=== PATIENT | female | born 1935 | race Caucasian/White ===

== ENCOUNTER 2017-04-01 09:43 | Outpatient (CLI) | payer MEDICARE, OTHER ==
[2017-04-01 11:07] LABS: #Eosinphils 0.2 thou/uL (0.0-0.7); #Lymphocytes 1.7 thou/uL (1.20-3.40); #Monocytes 0.6 thou/uL (0.11-0.59); #Neutrophils 4.6 thou/uL (1.40-6.50); %Basophils 0.6 % (0.0-1.0); %Eosinophils 2.7 % (0.0-10.0); %Monocytes 8.3 % (0.0-10.0); %Neutrophils 64.4 % (42.0-75.0); Hemoglobin 11.3 g/dL (12.0-16.0); Mean Corpuscular HGB CONC 32.8 g/dL (32.0-36.0); Mean Corpuscular Hemoglobin 30.3 pg (27.0-31.0); Mean Corpuscular Volume 92.1 fl (81.0-99.0); Mean Platelet Volume 7.4 fL (7.4-10.4); Platelet Count 269 thou/uL (130-400); RBC Distribution Width 13.1 % (11.5-14.5); Red Blood Cell (RBC) Count 3.75 mill/uL (4.20-5.40); White Blood Cell (WBC) Count 7.2 thou/uL (4.8-10.8)
[2017-04-01 11:27] LABS: Anion Gap 12 mmol/L (10-20); BUN (Urea Nitrogen) 27 mg/dL (9.8-20.1); Calc. Creatinine Clearance 0 mL/min (70-130); Calcium 9.4 mg/dL (7.8-10.44); Carbon Dioxide 28 mmol/L (23-31); Chloride 104 mmol/L (98-107); Estimated GFR-MDRD 46; Glucose 196 mg/dL (83-110); Potassium 4.8 mmol/L (3.5-5.1); Sodium 139 mmol/L (136-145)
--- NOTE | 2017-04-01 15:46 | EKG ---
Test Reason : Blood Pressure : / mmHG Vent. Rate : 074 BPM Atrial Rate : 074 BPM P-R Int : 172 ms QRS Dur : 152 ms QT Int : 422 ms P-R-T Axes : 079 -75 044 degrees QTc Int : 468 ms Normal sinus rhythm Left axis deviation Right bundle branch block Abnormal ECG Confirmed by CAPRI MORILLO ([id number]) on 04/01/2017 3:46:42 PM Referred By: SHANKAR Confirmed By:CAPRI MORILLO
== END 2017-04-01 09:44 | disposition home or self-care (01) ==
LOC: LABBT 09:43
PROVIDERS: ATTEND Neurological Surgery
DX: Z01.818 Encounter for other preprocedural examination (principal); M54.16 Radiculopathy, lumbar region
CPT/HCPCS: 80048; 85025; 93005; 93010

== ENCOUNTER 2017-04-08 05:46 | Day surgery (SDC) | payer MEDICARE, OTHER ==
[2017-04-01 09:58] VITALS: BMI 26.5
--- NOTE | 2017-04-08 06:07 | HP ---
HISTORY OF PRESENT ILLNESS: Ms. Plummer is a pleasant 81-year-old woman who presents for severe left lower extremity L5 pains that have been present for roughly 1-1/2 years, but have worsened since Dec. She previously has attempted physical therapy and more recently epidural steroid injections, but unfortunately that only helped in a limited fashion. She is ready now to move forward with [facility]. MRI from [facility] reveals a slip at L4-L5 that narrows the bilateral lateral recesses and also has a far lateral foraminal disk herniation at L5 to the left which fits with her symptoms quite wel l. PAST MEDICAL HISTORY: Diabetes, , hypercholesterolemia, and hypertension. ALLERGIES: BACTRIM, COREG, NORVASC, METFORMIN, GLUCOPHAGE, NORCO, LISINOPRIL, LATEX, CRESTOR, JARDIA NCE, LYRICA, and EPINEPHRINE. PAST SURGICAL HISTORY: Appendectomy, hysterectomy, and cardiac bypass. CURRENT MEDICATIONS: NovoLog, Lantus, Januvia, Nifedical, isosorbide mononitrate, Synthroid, clonidi ne, potassium, furosemide, Ecotrin, and alprazolam. PHYSICAL EXAMINATION: The patient is alert and oriented x3. Gait is antalgic. Positive left straig ht leg raise. ASSESSMENT: Lumbar radiculopathy. PLAN: Dr. Reed met with the patient, reviewed imaging and advocated for a left L5 decompression. H e explained to the patient the risks, benefits, and alternatives to the procedure. The patient expre ssed understanding and would like to move forward with surgery as discussed. I do believe the patien t is mentally competent and capable of making medical decisions for herself and we will move forward with surgery as planned. Bhupinder An PA-C, dictating under Tremayne Reed M.D.
[2017-04-08] MEDS ORDERED: Thrombin 5000 UNITS/5 ML VIAL ONE (06:19)
[2017-04-08] MEDS ORDERED: Bupivacaine HCl 0.5%/Epinephrine 1:200,000/PF 30 ml Vial ONE (06:19)
[2017-04-08] MEDS ORDERED: Fentanyl 100 MCG/2 ML VIAL ONE ×2 (06:23→08:39)
[2017-04-08] MEDS ORDERED: CEFAZOLIN/Water 2 GM/20 ML SYRINGE ONE (06:28)
[2017-04-08] MEDS ORDERED: Ketorolac Tromethamine 30 MG/ML VIAL ONE (08:31)
--- NOTE | 2017-04-08 08:32 | OP ---
DATE OF PROCEDURE: 04/08/2017 SURGEON: Tremayne Reed M.D. GARAGE MECHANIC: Bhupinder An PA-C INDICATION: Pain. DIAGNOSIS: Left L5 radiculopathy. PROCEDURE: Far lateral left L5 discectomy. ANESTHESIA: General. TECHNIQUE: The patient was brought into the operating room and placed under general anesthesia. She was flipped from a supine to a prone position on the operating room table. A linear incision was pl anned over the L5 segment. After prepping and draping and after an appropriate operative pause, the incision was created. The soft tissues were swept left of midline. A self-retaining retractor was p laced in the wound for optimal exposure. After confirming the appropriate level with serum fluorosco py, most of the facet joint at the L5-S1 segment was removed using the high-speed cutting drill bit. The exiting L5 nerve root was identified. Within the medial aspect of the foramen, annulotomy was p erformed within the disk space. The disc material was removed. A pusher curette was used to remove disk material that was more lateral by placing it beneath the annulus and removing it with a series o f disk sponges and curettes. The wound was then irrigated. Hemostasis was maintained throughout. T he wound was then closed in anatomic layers and a pressure dressing was applied. There were no known procedural complications.
[2017-04-08] MEDS ORDERED: Lidocaine 1% PF 5 ML VIAL ONE (16:46)
[2017-04-08] MEDS ORDERED: Glycopyrrolate 0.2 MG/ML 5 ML SYRINGE ONE (16:46)
[2017-04-08] MEDS ORDERED: Ondansetron HCl/PF 4 MG/2 ML Vial ONE (16:46)
[2017-04-08] MEDS ORDERED: PHENYLEPHRINE-NS 100 MCG/ML 10 ML SYRINGE ONE (16:46)
[2017-04-08] MEDS ORDERED: PROPOFOL 200 MG/20 ML VIAL ONE (16:46)
== END 2017-04-08 13:33 | disposition home or self-care (01) ==
LOC: SDC 05:46
PROVIDERS: ATTEND Neurological Surgery
PROC: 01NB0ZZ Release Lumbar Nerve, Open Approach (ICD-10-PCS; principal; 2017-04-08)
PROC: 0RB30ZZ Excision of Cervical Vertebral Disc, Open Approach (ICD-10-PCS; 2017-04-08)
DX: M54.16 Radiculopathy, lumbar region (principal); E11.9 Type 2 diabetes mellitus without complications; E78.00 Pure hypercholesterolemia, unspecified; I10 Essential (primary) hypertension; M43.16 Spondylolisthesis, lumbar region; Z88.1 Allergy status to other antibiotic agents; Z88.2 Allergy status to sulfonamides; Z88.8 Allergy status to other drugs, medicaments and biological substances; Z91.048 Other nonmedicinal substance allergy status; Z79.4 Long term (current) use of insulin; Z79.899 Other long term (current) drug therapy
CPT/HCPCS: 36416; 76001; 96374; J0670; J1885; J2001; J2405; J2704; J3010

== ENCOUNTER 2017-06-14 11:20 | Emergency (ER) | payer MEDICARE, OTHER ==
--- NOTE | 2017-06-14 12:22 | RAD ---
CHEST 1 VIEW: Date: 06/14/17 HISTORY: Chest pain. COMPARISON: 09/24/16. FINDINGS: Cardiac silhouette magnified by projection. Pulmonary vasculature unremarkable. Mediastinum midline w ith postoperative changes and aortic calcification. No lobar consolidation or evidence of pneumothora x. IMPRESSION: Chronic-type findings are stable. No active cardiopulmonary abnormalities are demonstrated. POS: [facility]
[2017-06-14 12:30] LABS: #Basophils 0.1 thou/uL (0.0-0.2); #Eosinphils 0.1 thou/uL (0.0-0.7); #Lymphocytes 1.6 thou/uL (1.20-3.40); #Monocytes 0.5 thou/uL (0.11-0.59); #Neutrophils 4.2 thou/uL (1.40-6.50); %Basophils 1.1 % (0.0-1.0); %Monocytes 8.3 % (0.0-10.0); %Neutrophils 63.7 % (42.0-75.0); Hemoglobin 10.7 g/dL (12.0-16.0); Mean Corpuscular HGB CONC 34.6 g/dL (32.0-36.0); Mean Corpuscular Hemoglobin 30.8 pg (27.0-31.0); Mean Corpuscular Volume 89.2 fl (81.0-99.0); Mean Platelet Volume 7.2 fL (7.4-10.4); Platelet Count 241 thou/uL (130-400); RBC Distribution Width 13.6 % (11.5-14.5); Red Blood Cell (RBC) Count 3.46 mill/uL (4.20-5.40); White Blood Cell (WBC) Count 6.5 thou/uL (4.8-10.8)
[2017-06-14 12:47] LABS: CKMB 1.5 ng/mL (0-6.6); Troponin I Less than 0.010 ng/mL (< 0.028)
== END 2017-06-14 13:07 | disposition home or self-care (01) ==
LOC: SCSER 11:20
DX: E11.42 Type 2 diabetes mellitus with diabetic polyneuropathy (principal); I10 Essential (primary) hypertension; E03.9 Hypothyroidism, unspecified; E78.5 Hyperlipidemia, unspecified
CPT/HCPCS: 71045; 82553; 84484; 85025; 93005

== ENCOUNTER 2017-06-15 14:27 | Outpatient (CLI) | payer MEDICARE, OTHER ==
--- NOTE | 2017-06-15 15:38 | RAD ---
RIGHT ELBOW FOUR VIEWS: HISTORY: Pain. COMPARISON: None. FINDINGS: No joint effusion. No malalignment or fracture. IMPRESSION: Unremarkable four views right elbow. POS: [facility]
--- NOTE | 2017-06-15 15:42 | RAD ---
THREE VIEWS RIGHT SHOULDER: HISTORY: Pain. COMPARISON: None. FINDINGS: No evidence of dislocation. No evidence of fracture. Glenohumeral joint space appears to be preserv ed. IMPRESSION: No fracture or dislocation. POS: [facility]
== END 2017-06-15 14:28 | disposition home or self-care (01) ==
LOC: TBSIIMAG 14:27
PROVIDERS: ATTEND Psychiatry & Neurology Neurology
DX: M25.511 Pain in right shoulder (principal); M25.521 Pain in right elbow

== ENCOUNTER 2017-06-24 07:42 | Outpatient (CLI) | payer MEDICARE, OTHER ==
--- NOTE | 2017-06-24 10:35 | MRI ---
MRI CERVICAL SPINE: HISTORY: Right arm and neck pain. TECHNIQUE: Multiplanar, multisequence noncontrast enhanced MR images of the cervical spine obtained. FINDINGS: The spinal cord is unremarkable with no evidence of cord masses or lesions. C1-C2: Unremarkable. C2-C3: Unremarkable. C3-C4: No significant degree of central or neural foraminal narrowing seen. C4-C5: No significant degree of central stenosis or neural foraminal narrowing seen. C5-C6: There is some disk desiccation. There is a mild broad-based disk bulge, minimally but not si gnificantly compressing the thecal sac. The neural foramen is patent. C6-C7: Disk desiccation is seen. There is a broad-based disk osteophyte complex centrally, compress ing the thecal sac, resulting in mild central and moderate bilateral neural foraminal narrowing. Thi s is due to uncovertebral osteophyte hypertrophy. C7-T1: Unremarkable. IMPRESSION: 1. C5-C6 and C6-C7 disk desiccation. 2. Broad-based disk osteophyte complex seen at C6-C7 with neural foraminal extension. 3. No other significant abnormalities seen. POS: [facility]
== END 2017-06-24 07:43 | disposition home or self-care (01) ==
LOC: TBSIIMAG 07:42
PROVIDERS: ATTEND Psychiatry & Neurology Neurology
DX: M54.2 Cervicalgia (principal); M25.78 Osteophyte, vertebrae
CPT/HCPCS: 72141

== ENCOUNTER 2017-07-09 15:18 | Outpatient (CLI) | payer MEDICARE, OTHER ==
--- NOTE | 2017-07-09 17:51 | MRI ---
MRI OF THE LUMBAR SPINE WITHOUT AND WITH CONTRAST 07/09/17 COMPARISON: None. HISTORY: Back surgery in 2018. The patient began having back pain two months after the surgery extending down her left leg. TECHNIQUE: Multiplanar and multisequence MRI images were obtained of the lumbar spine without and with IV contra st. FINDINGS: Postsurgical changes are seen posteriorly at the L5-S1 level with a left laminectomy being performed at this level. There is enhancement in the left paraspinal soft tissues without abnormal enhancement in the central canal. No other abnormal areas of enhancement are seen. Generalized disc desiccation is seen. The vertebral bodies demonstrate normal height without evidence of fracture. There is grade I anterolisthesis of L4 on L5. The conus medullaris terminates normally at L1. There is a large cyst in the right kidney. The other prevertebral soft tissues are unremarkabl e. T12-L1: Unremarkable. L1-2: A small generalized concentric disc bulge is seen. No posterior facet arthrosis. No neural fora savannah or central canal stenosis. L2-3: No significant bulge or protrusion. No posterior facet arthrosis. No neural foramina or central canal stenosis. L3-4: A small disc osteophyte complex is seen. Mild bilateral posterior facet arthrosis. Mild central canal stenosis. Moderate bilateral neural foraminal stenosis. L4-5: A small generalized concentric disc bulge is seen. Moderate to severe bilateral posterior facet arthrosis. Moderate central canal stenosis. Moderate bilateral neural foraminal stenosis. L5-S1: A small disc osteophyte complex is seen. Moderate bilateral posterior facet arthrosis. No cent ral canal stenosis. moderate to severe bilateral neural foraminal stenosis, left greater than right. IMPRESSION: Degenerative changes of the lumbar spine as above. POS: [facility]
== END 2017-07-09 15:19 | disposition home or self-care (01) ==
LOC: SCSMRI 15:18
PROVIDERS: ATTEND Neurological Surgery
DX: M47.26 Other spondylosis with radiculopathy, lumbar region (principal)
CPT/HCPCS: 72158; 82565

== ENCOUNTER 2018-04-04 06:55 | Observation (INO) | payer MEDICARE, OTHER ==
[2018-04-04] MEDS ORDERED: Labetalol HCl 100 MG/20 ML VIAL ONE (07:29)
[2018-04-04] MEDS ORDERED: Nitroglycerin 2% Ointment 1 INCH/1 GM Packet ONE (07:29)
[2018-04-04 07:30] LABS: #Basophils 0.1 thou/uL (0.0-0.2); #Eosinphils 0.3 thou/uL (0.0-0.7); #Lymphocytes 1.9 thou/uL (1.20-3.40); #Monocytes 0.6 thou/uL (0.11-0.59); #Neutrophils 3.5 thou/uL (1.40-6.50); %Basophils 1.1 % (0.0-1.0); %Eosinophils 5.1 % (0.0-10.0); %Lymphocytes 29.6 % (21.0-51.0); %Monocytes 9.2 % (0.0-10.0); %Neutrophils 55.1 % (42.0-75.0); Hemoglobin 11.3 g/dL (12.0-16.0); Mean Corpuscular HGB CONC 34.3 g/dL (32.0-36.0); Mean Corpuscular Hemoglobin 30.3 pg (27.0-31.0); Mean Corpuscular Volume 88.4 fL (78.0-98.0); Mean Platelet Volume 7.8 fL (7.4-10.4); Platelet Count 237 thou/uL (130-400); RBC Distribution Width 13.2 % (11.5-14.5); Red Blood Cell (RBC) Count 3.72 mill/uL (4.20-5.40); White Blood Cell (WBC) Count 6.3 thou/uL (4.8-10.8)
[2018-04-04 07:39] LABS: ALT (SGPT) 24 U/L (8-55); AST (SGOT) 24 U/L (5-34); Albumin 3.8 g/dL (3.4-4.8); Alkaline Phosphatase 75 U/L (40-150); Anion Gap 12 mmol/L (10-20); BUN (Urea Nitrogen) 23 mg/dL (9.8-20.1); Bilirubin, Total 0.3 mg/dL (0.2-1.2); Calc. Creatinine Clearance 0 mL/min (70-130); Calcium 9.6 mg/dL (7.8-10.44); Carbon Dioxide 27 mmol/L (23-31); Chloride 105 mmol/L (98-107); Estimated GFR-MDRD 61; Globulin 2.4 g/dL (2.4-3.5); Glucose 96 mg/dL (83-110); Protein, Total 6.2 g/dL (6.0-8.3); Sodium 140 mmol/L (136-145)
[2018-04-04 07:56] LABS: Bilirubin Negative (Negative); Blood, Urine Negative (Negative); Clarity Clear (Clear); Glucose, Urine (Dipstick) Negative (Negative); Leukocyte Small (Negative); Nitrite Negative (Negative); Protein, Urine (Dipstick) 100 mg/dL (Neg-Trace); Specific Gravity, Urine 1.015 (1.005-1.030); Urobilinogen 0.2 mg/dL (0.2-1.0)
[2018-04-04 07:58] LABS: Bacteria/HPF None Seen HPF (None Seen); RBC/HPF 0-3 HPF (0-3); Squamous Epithelial 0-3 HPF (0-3); WBC/HPF 0-3 HPF (0-3)
[2018-04-04 07:59] LABS: Hyaline Casts/LPF 0-3 HYALINE CAST LPF (0-3 Hyaline)
[2018-04-04 08:02] LABS: CK (CPK) 168 U/L (29-168)
--- NOTE | 2018-04-04 08:10 | CT ---
HEAD CT WITHOUT CONTRAST: HISTORY: Headache. Hypertension and confusion. Hypertension. COMPARISON: None. FINDINGS: No parenchymal hemorrhage. No extraaxial hematoma. No midline shift. Basilar cisterns are patent. Brain volume is age appropriate. Cortical wing-white matter differentiation is preserved. Ventricles and sulci are patent and symmetric. Calvarium is intact. Adequate aeration of the sinuses and mastoid air cells. IMPRESSION: No acute intracranial process. POS: [facility]
[2018-04-04] MEDS ORDERED: hydrALAZINE 20 MG/ML VIAL SLOW IVP PRN (09:33)
[2018-04-04 09:50] VITALS: BMI 27.3
--- NOTE | 2018-04-04 10:25 | RAD ---
PORTABLE SEMIUPRIGHT FRONTAL CHEST RADIOGRAPH: DATE: 04/04/2018. COMPARISON: 06/14/2017. HISTORY: Hypertension and shortness of breath. FINDINGS: ____ POS: [facility]
[2018-04-04] MEDS ORDERED: NIFEdipine XL 60 MG TAB PO SCH (11:00)
[2018-04-04] MEDS ORDERED: Isosorbide Dinitrate 20 MG TAB PO SCH (11:00)
[2018-04-04] MEDS ORDERED: cloNIDine 0.2 MG TAB PO SCH (11:00)
[2018-04-04] MEDS ORDERED: Nitroglycerin 2% Ointment 1 INCH/1 GM Packet TOP SCH (14:00)
[2018-04-04] MEDS ORDERED: Dextrose 5% in Water 1,000 ML IV PRN (15:24)
[2018-04-04] MEDS ORDERED: Acetaminophen 325 MG TAB PO PRN (15:24)
[2018-04-04] MEDS ORDERED: HumaLOG 300 UNITS/3 ML VIAL SC PRN ×2 (15:24)
[2018-04-04] MEDS ORDERED: Dextrose 50% Abboject 50 ML SYRINGE SLOW IVP PRN (15:24)
[2018-04-04] MEDS ORDERED: Ondansetron ODT 4 MG TAB PO PRN (15:24)
[2018-04-04] MEDS ORDERED: NIFEdipine XL 30 MG TAB PO SCH (16:00)
--- NOTE | 2018-04-04 17:13 | HP ---
REASON FOR ADMISSION: Hypertensive urgency. HISTORY OF PRESENT ILLNESS AND REVIEW OF SYSTEMS: Ms. Plummer is a very pleasant 82-year-old woman, who was transferred from the [facility] for admission due to hypertensive urgency. The patient states that she felt slightly malaise and noted that her blood pressure was significantly elevated this morning. She states that it has been for the last 1 to 3 days. She denies any associated symptoms. She has a background history of hypertension, hypothyroidism, and type 2 diabetes as well as hyperlipidemia. She has been compliant with her medications. The only change that she reports is a recent increased sodium intake with her diet. She states that a week ago, there was a change with the sous chef kitchen manager at the assisted living facility. Her and other residents have placed complaints due to the significantly salty food. The patient does have the meals too. Cook had prepared wrong food; however, she states the food is included in her rent. Therefore, she has continued to eat that despite not adhering to dietary restrictions with regard to the sodium intake and her diabetes. She has otherwise been feeling very well on recent days. Denies having any headaches or dizziness. No visual changes. Denies any chest pain, palpitations, or shortness of breath. No nausea or vomiting. Denies any abdominal pain. She reports urinary frequency that is stable and chronic for her. No urinary retention. No dysuria or hematuria. Denies any changes with her bowel movement. She has not had any recent fevers, chills, or sweats. Denies cough or hemoptysis. All other review of systems are negative. PAST MEDICAL HISTORY: 1. Type 2 diabetes. 2. Hypothyroidism. 3. Hyperlipidemia. 4. Hypertension. 5. Hemorrhoids. PAST SURGICAL HISTORY: 1. Previous orthopedic surgery. 2. Back surgery in 2018. 3. CABG in 1998. 4. Appendectomy. 5. Hysterectomy. SOCIAL HISTORY: Denies any tobacco use or alcohol use. ALLERGIES: REPORTS ALLERGIES TO CLONIDINE, COREG, EPINEPHRINE GLUCOPHAGE, HYDROCODONE, LATEX GLOVES, LISINOPRIL, NORVASC, AND BACTRIM. CURRENT MEDICATIONS: 1. Cholecalciferol 1000 units p.o. at bedtime. 2. Potassium chloride 10 mEq p.o. twice daily. 3. Butte-3 fatty acids/fish oil 1 capsule p.o. twice daily. 4. Nifedipine 60 mg p.o. at noon. 5. Multivitamin with minerals 2 tablets p.o. twice daily. 6. Lactobacillus acidophilus 1 capsule every morning. 7. Insulin Aspart 7 units subcutaneous at 6 p.m. 8. Sitagliptin phosphate 100 mg p.o. every morning. 9. Red yeast rice 600 mg p.o. every morning. 10. Cranberry fruit concentrate 250 mg p.o. every morning. 11. Calcium titrate/vitamin D3 one tablet p.o. every morning. 12. Calcet 200 mg p.o. at bedtime. 13. Isosorbide dinitrate 20 mg p.o. 3 times daily. 14. Tylenol PM extra strength capsule 1 tablet p.o. at bedtime. 15. Alprazolam 0.5 mg p.o. at bedtime. 16. Cinnamon bark 500 mg p.o. every morning. 17. Aspirin 325 mg p.o. at bedtime. 18. Clonidine 0.2 mg p.o. twice daily. 19. Vitamin B complex 150 mg p.o. at bedtime. 20. Garlic 1 tablet p.o. in the morning. 21. Repatha 140 mg subcutaneous twice daily, last taken on March 26, 2018. 22. Furosemide 40 mg p.o. as directed p.r.n. 23. Methylcellulose 500 mg p.o. at bedtime. 24. Magnesium 250 mg p.o. twice daily. 25. CoQ10 of 100 mg p.o. twice daily. 26. Turmeric 500 mg p.o. at bedtime. 27. Levothyroxine 75 mcg p.o. daily. 28. Insulin glargine 20 units subcutaneous twice daily. PHYSICAL EXAMINATION: GENERAL: The patient appears well developed, well nourished, is in no acute distress. VITAL SIGNS: Temperature 97.6, pulse 64, respirations 20, O2 saturation 98% on room air, and blood pressure 164/70. HEENT: Normocephalic and atraumatic. Pupils are equal, round, and reactive to light. Sclerae are without icterus. Oropharynx is clear. NECK: Supple. No lymphadenopathy. LUNGS: Clear to auscultation bilaterally without wheezes, rales, or rhonchi. CARDIAC: Regular rate and rhythm without audible murmurs or gallops. ABDOMEN: Soft, nontender, nondistended. Normoactive bowel sounds present. EXTREMITIES: No clubbing, cyanosis, or edema. NEUROLOGIC: Alert and oriented x3 skin without rash or jaundice. LABORATORY DATA: White blood count 6.3, hemoglobin 11.3, hematocrit 32.9, platelets 237. Sodium 140, potassium 4.0, BUN 23, creatinine 0.88, GFR 61, total bilirubin 0.3, AST 24, ALT 24, and alkaline phosphatase 25. CK 168, troponin 0.011, and BNP 254.2. Urinalysis unremarkable. IMAGING DATA: 1. Chest x-ray, 04/04/2018, . 2. CT brain 04/04/2018. No acute intracranial process. IMPRESSION AND PLAN: Ms. Plummer is a very pleasant 82-year-old woman being admitted for management of the following. 1. Hypertensive urgency. She had a elevated blood pressure of 211/86. Since the patient had not received home medications on this morning and these were provided with notable improvement in her blood pressure to 164/70. We will continue to monitor her blood pressure at this present time. She has hydralazine prescribed p.r.n. If blood pressure further elevated, we will increase her nifedipine to 90 mg at noon. The patient has a mildly raised BNP. We will obtain an echo. She last had a stress test in September 2016, which was normal. 2. Diabetes mellitus. Resume home medications. Monitor glucose. Insulin sliding scale ordered. 3. Hypothyroidism. Resume home medication. We will check TSH. 4. Gastrointestinal prophylaxis. 5. Venous thromboembolism prophylaxis. The patient's case was discussed with Dr. Dowling, who agrees with with plan of care as described above. Job ID: [id number]
[2018-04-04] MEDS: HumaLOG 300 UNITS/3 ML VIAL SC SCH (17:24)
[2018-04-04] MEDS: cloNIDine 0.2 MG TAB PO SCH (20:32)
[2018-04-04] MEDS: Magnesium Oxide 250 MG TAB PO SCH (20:32)
[2018-04-04] MEDS: Ubidecarenone 50 MG CAP PO SCH (20:32)
[2018-04-04] MEDS: Isosorbide Dinitrate 20 MG TAB PO SCH (20:33)
[2018-04-04] MEDS: Famotidine 20 MG TAB PO SCH (20:33)
[2018-04-04] MEDS ORDERED: Stress 600 With Zinc 1 TAB PO SCH (21:00)
[2018-04-04] MEDS ORDERED: Aspirin 325 mg Enteric Coated Tablet PO SCH (21:00)
[2018-04-04] MEDS ORDERED: Non-Formulary Item 1 EACH (Insulin Glargine,Hum.Rec.Anlog [Lantus Solostar] 20 UNIT) SQ SCH (21:00)
[2018-04-04] MEDS ORDERED: Insulin Glargine 20 UNITS in Pre-Filled Syringe 1 EACH SC SCH (21:00)
[2018-04-04] MEDS ORDERED: ALPRAZolam 0.5 MG TAB PO SCH (21:00)
[2018-04-05 05:45] LABS: #Eosinphils 0.2 thou/uL (0.0-0.7); #Lymphocytes 1.7 thou/uL (1.20-3.40); #Monocytes 0.7 thou/uL (0.11-0.59); #Neutrophils 4.6 thou/uL (1.40-6.50); %Basophils 0.5 % (0.0-1.0); %Eosinophils 3.4 % (0.0-10.0); %Lymphocytes 23.3 % (21.0-51.0); %Monocytes 10.1 % (0.0-10.0); %Neutrophils 62.7 % (42.0-75.0); Hemoglobin 10.7 g/dL (12.0-16.0); Mean Corpuscular HGB CONC 32.8 g/dL (32.0-36.0); Mean Corpuscular Hemoglobin 30.6 pg (27.0-31.0); Mean Corpuscular Volume 93.3 fL (78.0-98.0); Mean Platelet Volume 7.8 fL (7.4-10.4); Platelet Count 237 thou/uL (130-400); RBC Distribution Width 13.1 % (11.5-14.5); Red Blood Cell (RBC) Count 3.51 mill/uL (4.20-5.40); White Blood Cell (WBC) Count 7.3 thou/uL (4.8-10.8)
[2018-04-05 06:00] LABS: Anion Gap 13 mmol/L (10-20); BUN (Urea Nitrogen) 25 mg/dL (9.8-20.1); Calc. Creatinine Clearance 53 mL/min (70-130); Calcium 9.1 mg/dL (7.8-10.44); Carbon Dioxide 23 mmol/L (23-31); Chloride 105 mmol/L (98-107); Estimated GFR-MDRD 64; Glucose 137 mg/dL (83-110); Potassium 3.8 mmol/L (3.5-5.1); Sodium 137 mmol/L (136-145)
[2018-04-05] MEDS ORDERED: Levothyroxine Sodium 75 MCG TAB PO SCH (06:00)
--- NOTE | 2018-04-05 07:30 | RAD ---
FRONTAL RADIOGRAPH CHEST: Date: 04-04-18 Comparison: None. History: Shortness of breath. FINDINGS: Midline sternotomy wires and mediastinal clips are present. Mild increased linear interstitial densit y with pulmonary hyperinflation. No focal consolidation or alveolar edema. IMPRESSION: Chronic findings as described above. No focal consolidation or alveolar edema. POS: [facility]
[2018-04-05] MEDS: Alogliptin 25 MG TAB PO SCH ×2 (09:32→12:09)
[2018-04-05] MEDS: Insulin Glargine 10 UNITS in Pre-Filled Syringe 1 EACH SC SCH ×2 (09:32→12:09)
[2018-04-05] MEDS: Magnesium Oxide 250 MG TAB PO SCH (09:36)
[2018-04-05] MEDS: Ubidecarenone 50 MG CAP PO SCH (09:37)
[2018-04-05] MEDS: Isosorbide Dinitrate 20 MG TAB PO SCH ×2 (09:37→17:54)
[2018-04-05] MEDS: cloNIDine 0.2 MG TAB PO SCH (09:37)
[2018-04-05] MEDS: Famotidine 20 MG TAB PO SCH (09:37)
[2018-04-05] MEDS ORDERED: NIFEdipine XL 90 MG TAB PO SCH (12:00)
[2018-04-05] MEDS ORDERED: NIFEdipine XL 60 MG TAB PO SCH (12:00)
--- NOTE | 2018-04-05 15:29 | PDOC.EVN ---
Event Note - Event Note Event Note: Pt seen and examined. Care discussed w CRIMINAL JUDGE Ms Elidia.feels better. Likely home later today if BP better. ECHO done but results pending. can be followed up as an OP with her hr associate Dr. leyva. rest per Ms Brenner
[2018-04-05 16:22] VITALS: BP 138/95; TEMP 98.8
[2018-04-05] MEDS: HumaLOG 300 UNITS/3 ML VIAL SC SCH (17:52)
== END 2018-04-05 18:08 | disposition home or self-care (01) ==
LOC: SCSER 06:55 → 2SW 08:17
PROVIDERS: ADMIT Internal Medicine; ATTEND Internal Medicine
DX: I16.0 Hypertensive urgency (principal); E03.9 Hypothyroidism, unspecified; E11.9 Type 2 diabetes mellitus without complications; E78.5 Hyperlipidemia, unspecified; Z95.1 Presence of aortocoronary bypass graft; Z90.49 Acquired absence of other specified parts of digestive tract; Z90.710 Acquired absence of both cervix and uterus; Z88.5 Allergy status to narcotic agent; Z88.8 Allergy status to other drugs, medicaments and biological substances; Z88.1 Allergy status to other antibiotic agents; Z88.2 Allergy status to sulfonamides; Z91.040 Latex allergy status; Z91.09 Other allergy status, other than to drugs and biological substances; Z79.4 Long term (current) use of insulin; Z79.82 Long term (current) use of aspirin; Z79.899 Other long term (current) drug therapy
CPT/HCPCS: 70450; 71045; 80048; 80053; 82550; 82962 ×2; 83880; 84484; 85025 ×2; 93005; 93306; 96374; 96375; 99285; G0378; 36415; 36416; 81003; 81015; J0360; J1825

== ENCOUNTER 2018-10-12 14:53 | Outpatient (CLI) | payer MEDICARE, OTHER ==
[2018-10-12] MEDS ORDERED: ISOVUE-370 76%-LOCM 1 ML ONE (15:28)
--- NOTE | 2018-10-12 17:00 | CT ---
CTA ABDOMEN AND PELVIS WITH BILATERAL LOWER EXTREMITY RUNOFF: INDICATIONS: Lower extremity peripheral vascular disease TECHNIQUE: Multiple CTA images were obtained of the abdomen and pelvis with bilateral lower extremity runoff uti lizing IV contrast and 3D reformatted imaging. Axial, coronal and sagittal reformatted images were constructed from the raw data. FINDINGS: ABDOMEN: Lung bases: Clear Liver: No focal lesion. Gallbladder: Normal appearing. Pancreas: Normal. Adrenal glands: Normal. Spleen: Normal. Kidneys: Bilateral renal cysts. The largest is seen right measuring 8.5 cm off the right interpolar r egion. There is a mildly septated cyst involving the superior pole of the right kidney measuring 3 cm that has slightly enlarged from a comparison CT dated 01/24/2014. There is a retroaortic left get l vein Retroperitoneum of the upper abdomen: No lymphadenopathy or free fluid is identified. Pelvis: Small and large bowel: Scattered colonic diverticula. Bladder: There is a cystocele projecting into the upper aspect of the vagina. Rectal and perirectal soft tissues:Normal. Reproductive structures: Surgically absent Free fluid in pelvis: No free fluid is evident. Lymphadenopathy pelvis: No lymphadenopathy is evident. Osseous structures: There is a stable superior endplate compression fracture of L4. There is stable g rade 1 anterolisthesis of L4 on L5. No acute fracture is evident. There is scattered degenerative and osteoarthritic changes. Vasculature: Aorta: There are severe vascular calcifications seen involving the visualized vasculature. Celiac:Moderate atherosclerotic irregularity involving the proximal celiac artery. SMA:There is mild atherosclerotic narrowing involving the proximal SMA Renal arteries:There is mild narrowing involving the origin of the right renal artery. The left renal artery appears patent. [place]:Normal in caliber without evidence of stenosis or occlusion. Right common iliac artery: Normal in caliber without evidence of stenosis or occlusion. Right external iliac artery: Normal in caliber without evidence of stenosis or occlusion. Right internal iliac artery: Mild luminal caliber narrowing of the proximal right internal iliac conchis ry. Left common iliac artery: Mild atherosclerotic narrowing involving the left common iliac artery. Left external iliac artery: Normal in caliber without evidence of stenosis or occlusion.. Left internal iliac artery: Mild luminal caliber narrowing involving the proximal left internal iliac artery. Right common femoral artery: Normal in caliber without evidence of stenosis or occlusion. Right deep femoral artery: Mild narrowing involving the proximal right profunda femoral artery. Right superficial femoral artery: Mild atherosclerotic irregularity involving the distal right SFA Right popliteal artery: Multifocal high-grade stenosis involving the right popliteal artery Right posterior tibial artery: Normal in caliber without evidence of stenosis or occlusion. Right anterior tibial artery: There is high-grade stenosis involving the proximal anterior tibial ar asher Right peroneal artery: Normal in caliber without evidence of stenosis or occlusion. Left common femoral artery: Normal in caliber without evidence of stenosis or occlusion. Left deep femoral artery: Normal in caliber without evidence of stenosis or occlusion. Left superficial femoral artery: Mild atherosclerotic irregularity with moderate to luminal caliber narrowing involving the left SFA at the level of the left adductor hiatus Left popliteal artery: Multifocal areas of high-grade stenosis involving the left popliteal artery Left posterior tibial artery: High-grade stenosis at the origin Left anterior tibial artery: High-grade stenosis at the origin Left peroneal artery: High-grade stenosis at the origin Additional findings: None. IMPRESSION: 1. Multifocal high-grade stenosis involving the popliteal artery bilaterally. 2. High-grade stenosis involving the origins of the left anterior tibial artery, left posterior tibia l artery and peroneal arteries of the left lower extremity. 3. Moderate stenosis involving the distal left SFA near the left adductor hiatus. 4. High-grade stenosis involving the proximal right anterior tibial artery. 5. Septated cyst of the superior pole the right kidney. A follow-up CT examination utilizing a renal mass protocol in 6 months is recommended to document stability. 6. Cystocele seen within the upper vagina. 7. Stable superior endplate compression fracture of L4.
== END 2018-10-12 14:54 | disposition home or self-care (01) ==
LOC: BICCT 14:53
PROVIDERS: ATTEND Internal Medicine Cardiovascular Disease
DX: R09.89 Other specified symptoms and signs involving the circulatory and respiratory systems (principal); I70.203 Unspecified atherosclerosis of native arteries of extremities, bilateral legs; N28.1 Cyst of kidney, acquired; N81.10 Cystocele, unspecified; M84.48XA Pathological fracture, other site, initial encounter for fracture
CPT/HCPCS: 75635; 82565; Q9966

== ENCOUNTER 2019-06-16 09:53 | Outpatient (CLI) | payer MEDICARE ==
--- NOTE | 2019-06-16 10:57 | CT ---
Exam: LUMBAR SPINE CT WITHOUT CONTRAST: HISTORY: Low back pain, when bending forward. Previous back surgery. COMPARISON: None. FINDINGS: Visualized lung bases do not demonstrate any mass or consolidation. Hypodensity emanates from the right renal cortex with attenuation coefficient of 13.5 Hounsfield unit s. Probable cyst is favored. Otherwise, solid organs are unremarkable. There is atherosclerosis involving the aorta. There is significant atherosclerotic disease in the left renal artery ostium and proximal left renal artery. Symmetric attenuation of psoas muscles. Visualized sacrum and iliac wings are intact. There are 5 lumbar type vertebra. Lumbar spine vertebral body heights are essentially maintained, wit h the exception of L4. There is mild loss of vertebral body height likely due to a remote mild superior endplate compression fracture. There is evidence of Schmorl's nodes along the inferior endpl ate of L2 and superior endplate of L4. Vacuum disc phenomenon at T12-L1, L1-L2, L2-L3, L4-L5 and L5-S1. Spondylolisthesis: 4.5 mm of anterolisthesis of L4 upon L5. Bilateral vacuum joint phenomenon involving the facet joints at L4-L5 and L5-S1. T11-T12: No high-grade central canal stenosis or high-grade neural foraminal narrowing. T12-L1: Vacuum disc phenomenon. No significant central canal stenosis. Mild bilateral neural foramina l narrowing. L1-L2: Vacuum disc phenomenon. No significant central canal stenosis. Neural foramina are patent. L2-L3: Vacuum disc phenomenon. Broad-based disc bulge, ligamentum flavum thickening and facet hypertr ophy result in mild central canal stenosis. Mild bilateral neural foraminal narrowing. L3-L4: Broad-based disc bulge, ligamentum flavum thickening and facet hypertrophy result in mild cent ral canal stenosis. Mild to moderate right and moderate left neural foraminal narrowing. L4-L5: Vacuum disc phenomenon. Broad-based disc bulge, ligamentum flavum thickening and facet hypertr ophy result in mild to moderate central canal stenosis. Mild to moderate bilateral neural foraminal narrowing. L5-S1: Vacuum disc phenomenon. Broad-based disc bulge results in mild to moderate central canal steno sis. Moderate bilateral foraminal narrowing. IMPRESSION: 1. No acute fracture. Remote mild compression fracture at L4 without significant retropulsion. 2. Multilevel vacuum disc phenomenon. There are varying degrees of central canal stenosis and neural foraminal narrowing as detailed above. Transcribed Date/Time: 06/16/2019 11:37 AM
== END 2019-06-16 09:54 | disposition home or self-care (01) ==
LOC: TBSIIMAG 09:53
PROVIDERS: ATTEND Neurological Surgery
DX: M54.5 Low back pain (principal); M48.061 Spinal stenosis, lumbar region without neurogenic claudication; M48.07 Spinal stenosis, lumbosacral region; M48.05 Spinal stenosis, thoracolumbar region; M51.35 Other intervertebral disc degeneration, thoracolumbar region; M51.36 Other intervertebral disc degeneration, lumbar region; M51.37 Other intervertebral disc degeneration, lumbosacral region
CPT/HCPCS: 72131

== ENCOUNTER 2020-08-30 12:14 | Outpatient (CLI) | payer MEDICARE | END 2020-08-30 12:15 | disposition home or self-care (01) | LOC: SCSMRI 12:14 | PROVIDERS: ATTEND Neurological Surgery | DX: M50.123 Cervical disc disorder at C6-C7 level with radiculopathy (principal) | CPT/HCPCS: 72141 ==

== ENCOUNTER 2021-09-20 13:20 | Outpatient (CLI) | payer OTHER ==
[2021-09-20 14:27] LABS: Hemoglobin 10.1 g/dL (12.0-15.5); Mean Corpuscular Hemoglobin 29.2 pg (27.0-33.0); Mean Corpuscular Volume 88.4 fl (81.6-98.3); Mean Platelet Volume 10.4 fl (7.4-10.4); Platelet Count 287 10x3/uL (150-450); Red Blood Cell (RBC) Count 3.46 10x6/uL (3.90-5.03); White Blood Cell (WBC) Count 6.9 10x3/uL (3.5-10.5)
[2021-09-20 14:46] LABS: Anion Gap 15 mmol/L (10-20); BUN (Urea Nitrogen) 31 mg/dL (9.8-20.1); Calc. Creatinine Clearance 0 mL/min (70-130); Calcium 8.9 mg/dL (7.8-10.44); Carbon Dioxide 26 mmol/L (23-31); Chloride 104 mmol/L (98-107); Estimated GFR 41; Glucose 381 mg/dL (83-110); Potassium 4.5 mmol/L (3.5-5.1); Sodium 140 mmol/L (136-145)
== END 2021-09-20 13:21 | disposition home or self-care (01) ==
LOC: LABBT 13:20
PROVIDERS: ATTEND Neurological Surgery
DX: Z01.812 Encounter for preprocedural laboratory examination (principal); Z20.822 Contact with and (suspected) exposure to COVID-19
CPT/HCPCS: 80048; 85027; 87811

== ENCOUNTER 2021-09-25 07:17 | Day surgery (SDC) | payer OTHER ==
[2021-09-23 15:02] VITALS: BMI 26.5
[2021-09-25] MEDS ORDERED: CEFAZOLIN 2 GM VIAL ONE ×2 (08:18→12:55)
[2021-09-25] MEDS ORDERED: Sodium Chloride 0.9% 100 ML ONE ×2 (08:19→12:55)
[2021-09-25] MEDS ORDERED: Lidocaine 1% PF 5 ML VIAL ONE (08:45)
[2021-09-25] MEDS ORDERED: PROPOFOL 200 MG/20 ML VIAL ONE (08:45)
[2021-09-25] MEDS ORDERED: Metoprolol Tartrate 5 MG/5 ML VIAL ONE (08:45)
[2021-09-25] MEDS ORDERED: Rocuronium Bromide 10 MG/ML (10ML VIAL) ONE (08:45)
[2021-09-25] MEDS ORDERED: fentaNYL Citrate/PF 100 MCG/2 ML SYRINGE ONE (08:58)
[2021-09-25] MEDS ORDERED: SUGAMMADEX SODIUM 200 MG/2 ML VIAL ONE (09:40)
[2021-09-25] MEDS ORDERED: HYDROcodone/Acetaminophen 5/325 mg Tablet ONE (11:50)
[2021-09-25] MEDS ORDERED: Acetaminophen/Codeine 30-300mg Tablet ONE (11:55)
== END 2021-09-25 13:34 | disposition home or self-care (01) ==
LOC: SDC 07:17
PROVIDERS: ATTEND Neurological Surgery
PROC: 0RG10A0 Fusion of Cervical Vertebral Joint with Interbody Fusion Device, Anterior Approach, Anterior Column, Open Approach (ICD-10-PCS; principal; 2021-09-25)
DX: M48.02 Spinal stenosis, cervical region (principal); M43.12 Spondylolisthesis, cervical region; G99.2 Myelopathy in diseases classified elsewhere; M54.12 Radiculopathy, cervical region; E11.9 Type 2 diabetes mellitus without complications; I10 Essential (primary) hypertension; I25.10 Atherosclerotic heart disease of native coronary artery without angina pectoris; M19.90 Unspecified osteoarthritis, unspecified site; Z79.4 Long term (current) use of insulin; Z79.82 Long term (current) use of aspirin; Z79.890 Hormone replacement therapy; Z79.899 Other long term (current) drug therapy; Z88.1 Allergy status to other antibiotic agents; Z88.2 Allergy status to sulfonamides; Z88.5 Allergy status to narcotic agent; Z88.8 Allergy status to other drugs, medicaments and biological substances; Z91.040 Latex allergy status; Z91.048 Other nonmedicinal substance allergy status; Z95.1 Presence of aortocoronary bypass graft
CPT/HCPCS: 76000; C1713; J0690; J2704; J3490

== ENCOUNTER 2021-10-03 21:18 | Emergency (ER) | payer OTHER ==
[2021-10-03] MEDS ORDERED: Mineral Oil ENEMA PR SCH (22:45)
[2021-10-04] MEDS ORDERED: Ondansetron PF 4 MG/2 ML Vial ONE (00:18)
[2021-10-04 00:22] LABS: #Lymphocytes 1.3 thou/uL (1.20-3.40); #Monocytes 1.1 thou/uL (0.11-0.59); #Neutrophils 10.2 thou/uL (1.40-6.50); %Basophils 0.1 % (0.0-1.0); %Eosinophils 0.3 % (0.0-10.0); %Lymphocytes 10.2 % (21.0-51.0); %Monocytes 8.3 % (0.0-10.0); %Neutrophils 81.1 % (42.0-75.0); Hemoglobin 10.4 g/dL (12.0-16.0); Mean Corpuscular HGB CONC 32.8 g/dL (32.0-36.0); Mean Corpuscular Hemoglobin 29.8 pg (27.0-31.0); Mean Corpuscular Volume 90.9 fL (78.0-98.0); Mean Platelet Volume 7.4 fL (7.4-10.4); Platelet Count 362 thou/uL (130-400); RBC Distribution Width 12.6 % (11.5-14.5); Red Blood Cell (RBC) Count 3.49 mill/uL (4.20-5.40); White Blood Cell (WBC) Count 12.6 thou/uL (4.8-10.8)
[2021-10-04 00:43] LABS: ALT (SGPT) 14 U/L (8-55); AST (SGOT) 20 U/L (5-34); Albumin 3.7 g/dL (3.4-4.8); Alkaline Phosphatase 82 U/L (40-110); Anion Gap 16 mmol/L (10-20); BUN (Urea Nitrogen) 24 mg/dL (9.8-20.1); Bilirubin, Total 0.2 mg/dL (0.2-1.2); Calc. Creatinine Clearance 0 mL/min (70-130); Calcium 9.2 mg/dL (7.8-10.44); Carbon Dioxide 29 mmol/L (23-31); Chloride 95 mmol/L (98-107); Estimated GFR 47; Globulin 2.6 g/dL (2.4-3.5); Glucose 237 mg/dL (83-110); Lipase 26 U/L (8-78); Potassium 4.3 mmol/L (3.5-5.1); Protein, Total 6.3 g/dL (5.8-8.1); Sodium 136 mmol/L (136-145)
[2021-10-04] MEDS ORDERED: Ketorolac Tromethamine 30 MG/ML VIAL ONE (01:26)
[2021-10-04 02:19] LABS: Bacteria/HPF None Seen HPF (None Seen); Bilirubin Negative (Negative); Blood, Urine Negative (Negative); Clarity Clear (Clear); Glucose, Urine (Dipstick) >=1000 mg/dL (Negative); Ketone, Urine Negative (Negative); Leukocyte Negative Leu/uL (Negative); Nitrite Negative (Negative); Protein, Urine (Dipstick) 100 mg/dL (Neg-Trace); RBC/HPF 0-3 HPF (0-3); Specific Gravity, Urine 1.015 (1.002-1.036); Squamous Epithelial None Seen HPF (0-3); Urobilinogen Normal mg/dL (Less than 2); WBC/HPF 0-3 HPF (0-3)
[2021-10-04] MEDS ORDERED: Iopamidol-370 76% 500 ML 1 ML ONE (14:57)
== END 2021-10-04 03:35 | disposition home or self-care (01) ==
LOC: ERS 21:18
DX: K52.9 Noninfective gastroenteritis and colitis, unspecified (principal); E11.9 Type 2 diabetes mellitus without complications; E03.9 Hypothyroidism, unspecified; E78.5 Hyperlipidemia, unspecified; I10 Essential (primary) hypertension
CPT/HCPCS: 36415; 74177; 80053; 81003; 81015; 83690; 85025; 87086; 93005; 96374; 96375; J1885; J2405; Q9967

== ENCOUNTER 2021-11-14 07:03 | Observation (INO) | payer OTHER ==
[2021-11-14 08:02] LABS: #Basophils 0.1 thou/uL (0.0-0.2); #Eosinphils 0.2 thou/uL (0.0-0.7); #Lymphocytes 1.2 thou/uL (1.20-3.40); #Monocytes 0.5 thou/uL (0.11-0.59); #Neutrophils 4.6 thou/uL (1.40-6.50); %Basophils 0.8 % (0.0-1.0); %Lymphocytes 17.6 % (21.0-51.0); %Monocytes 8.1 % (0.0-10.0); %Neutrophils 70.5 % (42.0-75.0); Hemoglobin 10.1 g/dL (12.0-16.0); Mean Corpuscular HGB CONC 32.5 g/dL (32.0-36.0); Mean Corpuscular Hemoglobin 29.9 pg (27.0-31.0); Mean Corpuscular Volume 92.1 fL (78.0-98.0); Mean Platelet Volume 7.6 fL (7.4-10.4); Platelet Count 280 thou/uL (130-400); RBC Distribution Width 13.5 % (11.5-14.5); Red Blood Cell (RBC) Count 3.38 mill/uL (4.20-5.40); White Blood Cell (WBC) Count 6.6 thou/uL (4.8-10.8)
[2021-11-14] MEDS ORDERED: Meclizine HCl 25 MG TAB ONE (08:12)
[2021-11-14] MEDS ORDERED: hydrALAZINE 20 MG/ML VIAL ONE (08:12)
[2021-11-14 08:29] LABS: ALT (SGPT) 10 U/L (8-55); AST (SGOT) 17 U/L (5-34); Albumin 3.5 g/dL (3.4-4.8); Alkaline Phosphatase 68 U/L (40-110); Anion Gap 9 mmol/L (10-20); BUN (Urea Nitrogen) 29 mg/dL (9.8-20.1); Bilirubin, Total 0.4 mg/dL (0.2-1.2); CK (CPK) 103 U/L (29-168); Calc. Creatinine Clearance 0 mL/min (70-130); Carbon Dioxide 27 mmol/L (23-31); Chloride 107 mmol/L (98-107); Estimated GFR 54; Globulin 2.5 g/dL (2.4-3.5); Glucose 127 mg/dL (83-110); Potassium 4.1 mmol/L (3.5-5.1); Sodium 139 mmol/L (136-145)
[2021-11-14 08:46] LABS: CKMB 2.2 ng/mL (0-6.6)
[2021-11-14 09:30] LABS: Bilirubin Negative (Negative); Blood, Urine Negative (Negative); Clarity Clear (Clear); Glucose, Urine (Dipstick) 30 mg/dL (Negative); Ketone, Urine Negative (Negative); Leukocyte 250 Leu/uL (Negative); Nitrite Negative (Negative); Protein, Urine (Dipstick) 100 mg/dL (Neg-Trace); RBC/HPF 0-3 HPF (0-3); Specific Gravity, Urine 1.011 (1.002-1.036); Squamous Epithelial 0-3 HPF (0-3); Urobilinogen Normal mg/dL (Less than 2); pH, Urine 6.5 (5.0-9.0)
[2021-11-14 09:33] LABS: Bacteria/HPF 1+ HPF (None Seen)
[2021-11-14 09:50] LABS: SARS-CoV-2 NAA Rapid Test Not Detected (NotDetected)
[2021-11-14] MEDS ORDERED: Aspirin Chewable 81 MG TAB ONE (09:59)
[2021-11-14] MEDS ORDERED: Nitroglycerin 0.4 MG TAB (25 Tab Bottle) SL PRN (10:14)
[2021-11-14] MEDS ORDERED: NIFEdipine XL 60 MG TAB PO SCH (10:15)
[2021-11-14] MEDS ORDERED: Ondansetron PF 4 MG/2 ML Vial IVP PRN (10:15)
[2021-11-14] MEDS ORDERED: Calcium Carbonate 500 MG ChewTAB PO PRN (10:15)
[2021-11-14] MEDS ORDERED: Aspirin Chewable 81 MG TAB PO SCH (10:15)
[2021-11-14] MEDS ORDERED: hydrALAZINE 20 MG/ML VIAL SLOW IVP SCH (10:15)
[2021-11-14] MEDS ORDERED: Ondansetron ODT 4 MG TAB PO PRN (10:15)
[2021-11-14] MEDS ORDERED: Acetaminophen 325 MG TAB PO PRN (10:15)
[2021-11-14] MEDS ORDERED: Dextrose 50% Abboject 50 ML SYRINGE SLOW IVP PRN (10:17)
[2021-11-14] MEDS ORDERED: Insulin Regular 300 UNITS/3 ML VIAL SC PRN ×2 (10:17)
[2021-11-14] MEDS ORDERED: Dextrose 5% in Water 1,000 ML IV PRN (10:17)
[2021-11-14] MEDS ORDERED: hydrALAZINE 20 MG/ML VIAL SLOW IVP PRN (10:32)
[2021-11-14 11:28] LABS: Troponin I 0.052 ng/mL (< 0.028)
[2021-11-14 13:58] LABS: Troponin I 0.052 ng/mL (< 0.028)
[2021-11-14] MEDS: Isosorbide Dinitrate 20 MG TAB PO SCH ×2 (14:44→19:54)
[2021-11-14 14:46] VITALS: BMI 28.3
[2021-11-14] MEDS ORDERED: FLU VACC QS2022-23(65YR UP)/PF 240 MCG/0.7 ML SYRINGE IM ONE (15:00)
[2021-11-14] MEDS ORDERED: Meclizine HCl 25 MG TAB PO PRN (16:00)
[2021-11-14] MEDS: hydrALAZINE 25 MG TAB PO SCH (19:54)
[2021-11-14] MEDS ORDERED: Amitriptyline HCl 10 MG TAB PO SCH (21:00)
[2021-11-14] MEDS: Insulin Glargine 30 UNITS/0.3 ML VIAL SC SCH (21:25)
[2021-11-15 04:06] LABS: #Eosinphils 0.2 thou/uL (0.0-0.7); #Lymphocytes 1.5 thou/uL (1.20-3.40); #Monocytes 0.6 thou/uL (0.11-0.59); #Neutrophils 3.8 thou/uL (1.40-6.50); %Basophils 0.3 % (0.0-1.0); %Eosinophils 2.8 % (0.0-10.0); %Lymphocytes 25.2 % (21.0-51.0); %Monocytes 9.1 % (0.0-10.0); %Neutrophils 62.5 % (42.0-75.0); Hemoglobin 9.8 g/dL (12.0-16.0); Mean Corpuscular HGB CONC 33.3 g/dL (32.0-36.0); Mean Corpuscular Hemoglobin 30.9 pg (27.0-31.0); Mean Corpuscular Volume 92.7 fL (78.0-98.0); Mean Platelet Volume 7.8 fL (7.4-10.4); Platelet Count 275 thou/uL (130-400); RBC Distribution Width 13.6 % (11.5-14.5); Red Blood Cell (RBC) Count 3.17 mill/uL (4.20-5.40)
[2021-11-15 04:40] LABS: Anion Gap 11 mmol/L (10-20); BUN (Urea Nitrogen) 26 mg/dL (9.8-20.1); Calc. Creatinine Clearance 44 mL/min (70-130); Calcium 8.8 mg/dL (7.8-10.44); Carbon Dioxide 23 mmol/L (23-31); Chloride 108 mmol/L (98-107); Estimated GFR 57; Glucose 129 mg/dL (83-110); Potassium 4.1 mmol/L (3.5-5.1); Sodium 138 mmol/L (136-145)
[2021-11-15] MEDS ORDERED: Levothyroxine Sodium 75 MCG TAB PO SCH (06:00)
[2021-11-15] MEDS ORDERED: NIFEdipine XL 90 MG TAB PO SCH (09:00)
[2021-11-15] MEDS ORDERED: Multivit, Therapeutic 1 TAB PO SCH (09:00)
[2021-11-15] MEDS ORDERED: Aspirin 325 mg Enteric Coated Tablet PO SCH (09:00)
[2021-11-15] MEDS: Insulin Glargine 30 UNITS/0.3 ML VIAL SC SCH (09:33)
[2021-11-15] MEDS: Isosorbide Dinitrate 20 MG TAB PO SCH ×2 (09:33→16:19)
[2021-11-15] MEDS: hydrALAZINE 25 MG TAB PO SCH (09:33)
[2021-11-15 12:01] VITALS: TEMP 98.3
[2021-11-15 13:24] VITALS: BP 188/78
== END 2021-11-15 16:45 | disposition home or self-care (01) ==
LOC: ERS 07:03 → ERHOLD 09:52 → 2NO 13:17
PROVIDERS: ADMIT Hospitalist; ATTEND Hospitalist
DX: R42 Dizziness and giddiness (principal); I16.0 Hypertensive urgency; I25.10 Atherosclerotic heart disease of native coronary artery without angina pectoris; I13.10 Hypertensive heart and chronic kidney disease without heart failure, with stage 1 through stage 4 chronic kidney disease, or unspecified chronic kidney disease; E11.22 Type 2 diabetes mellitus with diabetic chronic kidney disease; N18.2 Chronic kidney disease, stage 2 (mild); D63.1 Anemia in chronic kidney disease; E78.5 Hyperlipidemia, unspecified; M19.90 Unspecified osteoarthritis, unspecified site; Z79.4 Long term (current) use of insulin; Z79.84 Long term (current) use of oral hypoglycemic drugs; Z79.890 Hormone replacement therapy; Z79.899 Other long term (current) drug therapy; Z88.1 Allergy status to other antibiotic agents; Z88.2 Allergy status to sulfonamides; Z88.5 Allergy status to narcotic agent; Z88.8 Allergy status to other drugs, medicaments and biological substances; Z91.040 Latex allergy status; Z91.048 Other nonmedicinal substance allergy status; Z95.1 Presence of aortocoronary bypass graft; Z20.822 Contact with and (suspected) exposure to COVID-19
CPT/HCPCS: 70450; 71045; 80048; 80053; 82550; 82553; 82962 ×2; 83605; 83735; 84484 ×2; 85025 ×2; 93005; 94760; 96374; 99285; G0378 ×3; U0002; 36415; 36416; 81003; 81015; J0360; J1815

== ENCOUNTER 2023-03-19 10:44 | Outpatient (CLI) | payer MEDICARE ==
[2023-03-19 12:21] LABS: #Eosinphils 0.1 10x3/uL (0.0-0.5); #Monocytes 0.6 10x3/uL (0.0-1.1); #Neutrophils 5.3 10x3/uL (1.5-8.4); %Basophils 0.5 % (0.0-2.0); %Eosinophils 1.6 % (0.0-6.0); %Lymphocytes 18.7 % (18.0-47.0); %Monocytes 8.1 % (0.0-10.0); %Neutrophils 70.6 % (40.0-75.0); Hematocrit 27.4 % (34.9-44.5); Hemoglobin 9.1 g/dL (12.0-15.5); Mean Corpuscular HGB CONC 33.2 g/dL (32.0-36.0); Mean Corpuscular Hemoglobin 29.5 pg (27.0-33.0); Mean Platelet Volume 10.3 fl (7.4-10.4); Platelet Count 304 10x3/uL (150-450); RBC Distribution Width 14.6 % (11.5-14.5); Red Blood Cell (RBC) Count 3.08 10x6/uL (3.90-5.03); White Blood Cell (WBC) Count 7.6 10x3/uL (3.5-10.5)
[2023-03-19 13:00] LABS: Anion Gap 11 mmol/L (10-20); BUN (Urea Nitrogen) 29 mg/dL (9.8-20.1); Calc. Creatinine Clearance 0 mL/min (70-130); Calcium 8.6 mg/dL (7.8-10.44); Carbon Dioxide 25 mmol/L (23-31); Chloride 106 mmol/L (98-107); Estimated GFR 40; Glucose 180 mg/dL (83-110); Potassium 4.3 mmol/L (3.5-5.1); Sodium 138 mmol/L (136-145)
[2023-03-19 13:02] LABS: INR-International Normal Ratio 0.9; Prothrombin Time 9.8 sec (9.5-12.1)
== END 2023-03-19 10:45 | disposition home or self-care (01) ==
LOC: LABBT 10:44
PROVIDERS: ATTEND Orthopaedic Surgery
DX: Z01.818 Encounter for other preprocedural examination (principal); M17.11 Unilateral primary osteoarthritis, right knee
CPT/HCPCS: 80048; 85025; 85610; 87081; 93005; 93010

== ENCOUNTER 2023-03-24 06:32 | Observation (INO) | payer MEDICARE ==
[2023-03-19 11:41] VITALS: BMI 27.8
[2023-03-24] MEDS ORDERED: traMADol HCl 50 MG TAB PO PRN (07:01)
[2023-03-24] MEDS ORDERED: diphenhydrAMINE 25 MG CAP PO PRN (07:01)
[2023-03-24] MEDS ORDERED: Promethazine HCl 25 MG/ML VIAL IM PRN ×2 (07:01→09:01)
[2023-03-24] MEDS ORDERED: Acetaminophen 325 MG TAB PO PRN (07:01)
[2023-03-24] MEDS ORDERED: Bupivacaine PF 0.5% 30 ML VIAL ONE ×2 (07:07→08:32)
[2023-03-24] MEDS ORDERED: fentaNYL 50 mcg/mL 1 mL Vial ONE ×2 (07:07→13:58)
[2023-03-24] MEDS ORDERED: CEFAZOLIN 2 GM VIAL ONE (07:15)
[2023-03-24] MEDS ORDERED: Non-Formulary Item 1 EACH (Evolocumab [Repatha Syringe] 140 MG/ML Syringe) SQ SCH (07:15)
[2023-03-24] MEDS ORDERED: HumaLOG 300 UNITS/3 ML VIAL SC SCH (07:15)
[2023-03-24] MEDS ORDERED: Sodium Chloride 0.9% 100 ML ONE ×2 (07:16→07:20)
[2023-03-24] MEDS ORDERED: Vancomycin 1 GM/200 ML (FROZEN) BAG ONE (07:20)
[2023-03-24] MEDS ORDERED: Tranexamic Acid 1,000 MG/10 ML VIAL ONE (07:20)
[2023-03-24] MEDS ORDERED: Evolocumab [Repatha Syringe] 140 MG/ML Syringe DT SCH (07:30)
[2023-03-24] MEDS ORDERED: PROPOFOL 40 ML ONE (07:45)
[2023-03-24] MEDS ORDERED: Lidocaine 1% PF 5 ML VIAL ONE (07:48)
[2023-03-24] MEDS ORDERED: Ropivacaine 0.2% 550 ML 550 ML NERVE BLCK SCH (08:15)
[2023-03-24] MEDS ORDERED: HYDROcodone/Acetaminophen 10/325 mg Tablet PO PRN ×2 (08:15)
[2023-03-24] MEDS ORDERED: Ondansetron PF 4 MG/2 ML Vial ONE (08:19)
[2023-03-24] MEDS ORDERED: Labetalol HCl 100 MG/20 ML VIAL ONE (08:19)
[2023-03-24] MEDS ORDERED: Bupivacaine HCl 0.5%/Epinephrine 1:200,000/PF 30 ml Vial ONE (08:19)
[2023-03-24] MEDS ORDERED: Non-Formulary Item 1 EACH (Insulin Glargine,Hum.Rec.Anlog [Lantus Solostar] 100 UNIT/ML P SQ SCH (09:00)
[2023-03-24] MEDS ORDERED: CHOLECALCIFEROL 2000 UNIT PO SCH (09:00)
[2023-03-24] MEDS ORDERED: PACU-Morphine 4MG/ML VIAL SLOW IVP PRN (09:01)
[2023-03-24] MEDS ORDERED: Ondansetron HCl/PF 4 MG/2 ML Vial IVP PRN (09:01)
[2023-03-24] MEDS ORDERED: Insulin Regular 300 UNITS/3 ML VIAL ONE (10:11)
[2023-03-24] MEDS: Sodium Chloride 0.9% 1,000 ML IV SCH (10:43)
[2023-03-24 11:48] LABS: Hematocrit 26.8 % (36.0-47.0); Hemoglobin 8.6 g/dL (12.0-16.0)
[2023-03-24 12:13] LABS: Anion Gap 11 mmol/L (10-20); BUN (Urea Nitrogen) 30 mg/dL (9.8-20.1); Calc. Creatinine Clearance 31 mL/min (70-130); Calcium 8.5 mg/dL (7.8-10.44); Carbon Dioxide 22 mmol/L (23-31); Chloride 108 mmol/L (98-107); Estimated GFR 38; Glucose 106 mg/dL (83-110); Potassium 4.2 mmol/L (3.5-5.1); Sodium 137 mmol/L (136-145)
[2023-03-24] MEDS: Aspirin 81 mg Enteric Coated Tablet PO SCH (15:13)
[2023-03-24] MEDS: Insulin Glargine 30 UNITS/0.3 ML VIAL SC SCH (15:14)
[2023-03-24] MEDS: Ferrous Gluconate 324 MG TAB PO SCH (15:14)
[2023-03-24] MEDS: Isosorbide Dinitrate 20 MG TAB PO SCH (15:14)
[2023-03-24] MEDS: hydrALAZINE 10 MG TAB PO SCH (15:14)
[2023-03-24] MEDS: Cholecalciferol 1,000 UNITS (25 MCG) TAB PO SCH (15:14)
[2023-03-24] MEDS: Levothyroxine Sodium 100 MCG TAB PO SCH (15:14)
[2023-03-24] MEDS: NIFEdipine XL 90 MG ER.TAB PO SCH (15:15)
[2023-03-24] MEDS: Acetaminophen 500 MG TAB PO SCH (15:15)
[2023-03-24] MEDS: Insulin Regular 300 UNITS/3 ML VIAL SC SCH (15:15)
[2023-03-24] MEDS: Multivitamin W/ Minerals 1 TAB PO SCH (15:15)
[2023-03-24] MEDS: HumaLOG 300 UNITS/3 ML VIAL SC SCH (15:15)
[2023-03-24] MEDS: Senokot S 8.6-50 MG TAB PO SCH (15:15)
[2023-03-24] MEDS: CEFAZOLIN 2 GM in Sodium Chloride 0.9% 100 ML IVPB SCH (15:42)
[2023-03-24] MEDS: oxyCODONE 5 MG TAB PO PRN (15:42)
[2023-03-24] MEDS: fentaNYL 50 mcg/mL 1 mL Vial SLOW IVP PRN (16:27)
[2023-03-24] MEDS: traMADol HCl 50 MG TAB PO PRN (19:28)
[2023-03-24] MEDS: Magnesium Oxide 250 MG TAB PO SCH (19:29)
[2023-03-24] MEDS: Calcium Carbonate 600 MG + Vit D TAB PO SCH (19:29)
[2023-03-24] MEDS ORDERED: Non-Formulary Item 1 EACH (Magnesium [Magnesium] 250 MG Tablet) PO SCH (21:00)
[2023-03-24] MEDS ORDERED: CALCIUM CARBONATE PO SCH (21:00)
[2023-03-24] MEDS ORDERED: VITAMIN D3 PO SCH (21:00)
[2023-03-24] MEDS ORDERED: [UNRECOGNIZED DRUG - OTHER] PO SCH (21:00)
[2023-03-24] MEDS: Zolpidem Tartrate 5 MG TAB PO PRN (21:18)
[2023-03-25 04:39] LABS: Hematocrit 27.7 % (36.0-47.0); Hemoglobin 8.8 g/dL (12.0-16.0); Mean Corpuscular HGB CONC 31.8 g/dL (32.0-36.0); Mean Corpuscular Hemoglobin 29.1 pg (27.0-31.0); Mean Corpuscular Volume 91.7 fl (78.0-98.0); Mean Platelet Volume 9.9 fL (7.4-10.4); Platelet Count 266 10x3/uL (130-400); RBC Distribution Width 14.6 % (11.5-14.5); Red Blood Cell (RBC) Count 3.02 mill/uL (4.20-5.40); White Blood Cell (WBC) Count 8.7 10x3/uL (4.8-10.8)
[2023-03-25] MEDS: Ondansetron PF 4 MG/2 ML Vial IVP PRN (04:46)
[2023-03-25] MEDS ORDERED: Temazepam 15 MG CAP PO PRN (15:28)
[2023-03-25] MEDS: Ibuprofen 600 MG TAB PO PRN (20:46)
[2023-03-25] MEDS: Bisacodyl 10 MG SUPP PR PRN (21:45)
[2023-03-26 04:16] LABS: Hematocrit 25.9 % (36.0-47.0); Hemoglobin 8.4 g/dL (12.0-16.0); Mean Corpuscular HGB CONC 32.4 g/dL (32.0-36.0); Mean Corpuscular Hemoglobin 29.1 pg (27.0-31.0); Mean Corpuscular Volume 89.6 fl (78.0-98.0); Mean Platelet Volume 10.2 fL (7.4-10.4); Platelet Count 281 10x3/uL (130-400); RBC Distribution Width 14.6 % (11.5-14.5); Red Blood Cell (RBC) Count 2.89 mill/uL (4.20-5.40); White Blood Cell (WBC) Count 10.1 10x3/uL (4.8-10.8)
[2023-03-26 05:24] VITALS: TEMP 98.4
[2023-03-26] MEDS: Magnesium Citrate 300 ML BOT PO SCH (09:24)
[2023-03-26] MEDS ORDERED: Magnesium Citrate 300 ML BOT PO PRN (11:00)
[2023-03-26 16:04] VITALS: BP 183/53
== END 2023-03-26 19:00 | disposition home or self-care (01) ==
LOC: SDC 06:32 → SURG A 14:18
PROVIDERS: ADMIT Orthopaedic Surgery; ATTEND Orthopaedic Surgery
PROC: 0SRC0JZ Replacement of Right Knee Joint with Synthetic Substitute, Open Approach (ICD-10-PCS; principal; 2023-03-24)
DX: M17.11 Unilateral primary osteoarthritis, right knee (principal); I13.10 Hypertensive heart and chronic kidney disease without heart failure, with stage 1 through stage 4 chronic kidney disease, or unspecified chronic kidney disease; E11.22 Type 2 diabetes mellitus with diabetic chronic kidney disease; N18.9 Chronic kidney disease, unspecified; I25.10 Atherosclerotic heart disease of native coronary artery without angina pectoris; E03.9 Hypothyroidism, unspecified; E78.00 Pure hypercholesterolemia, unspecified; K21.9 Gastro-esophageal reflux disease without esophagitis; Z95.5 Presence of coronary angioplasty implant and graft; Z90.710 Acquired absence of both cervix and uterus; Z90.89 Acquired absence of other organs; Z98.890 Other specified postprocedural states; Z79.84 Long term (current) use of oral hypoglycemic drugs; Z79.890 Hormone replacement therapy; Z79.899 Other long term (current) drug therapy; Z79.4 Long term (current) use of insulin; Z88.8 Allergy status to other drugs, medicaments and biological substances; Z88.1 Allergy status to other antibiotic agents; Z88.5 Allergy status to narcotic agent; Z91.048 Other nonmedicinal substance allergy status; Z91.040 Latex allergy status; Z88.2 Allergy status to sulfonamides
CPT/HCPCS: 27447; 73560; 80048; 82962 ×3; 84484; 85014; 85018; 85027 ×2; 93005; 96365; 96375 ×2; 96376 ×2; 97110 ×3; 97116 ×3; 97530; A4306; C1776; G0378 ×3; J3010; J3370; 36415; 36416; 93010; J0665; J1815; J2405; J2704; J2795; J3490

== ENCOUNTER 2023-05-09 04:55 | Inpatient (IN) | payer MEDICARE ==
[2023-05-09] MEDS ORDERED: Nitroglycerin 0.4 MG TAB (25 Tab Bottle) ONE (05:45)
[2023-05-09 06:08] LABS: #Basophils 0.06 10x3/uL (0.0-0.2); %Basophils 0.7 % (0.0-1.0); %Eosinophils 1.8 % (0.0-10.0); %Lymphocytes 20.1 % (21.0-51.0); Hematocrit 26.8 % (36.0-47.0); Hemoglobin 8.3 g/dL (12.0-16.0); Mean Corpuscular Hemoglobin 28.2 pg (27.0-31.0); Mean Corpuscular Volume 91.2 fL (78.0-98.0); Mean Platelet Volume 10.2 fL (7.4-10.4); Platelet Count 302 10x3/uL (130-400); RBC Distribution Width 15.1 % (11.5-14.5); Red Blood Cell (RBC) Count 2.94 mill/uL (4.20-5.40)
[2023-05-09] MEDS ORDERED: Labetalol HCl 100 MG/20 ML VIAL ONE (06:18)
[2023-05-09 06:29] LABS: ALT (SGPT) 9 U/L (8-55); AST (SGOT) 15 U/L (5-34); Alkaline Phosphatase 73 U/L (40-110); Anion Gap 10 mmol/L (10-20); BUN (Urea Nitrogen) 23 mg/dL (9.8-20.1); Bilirubin, Total Less than 0.2 mg/dL (0.2-1.2); Calc. Creatinine Clearance 0 mL/min (70-130); Calcium 8.9 mg/dL (7.8-10.44); Carbon Dioxide 26 mmol/L (23-31); Chloride 108 mmol/L (98-107); Estimated GFR 35; Globulin 2.5 g/dL (2.4-3.5); Glucose 81 mg/dL (83-110); Potassium 3.7 mmol/L (3.5-5.1); Protein, Total 5.5 g/dL (5.8-8.1); Sodium 140 mmol/L (136-145)
[2023-05-09] MEDS ORDERED: Furosemide 40 MG (4 mL) VIAL ONE (07:01)
[2023-05-09] MEDS ORDERED: niCARdipine 25 MG/10 ML SDV ONE (07:07)
[2023-05-09] MEDS ORDERED: Acetaminophen 650 MG Suppository PR PRN (08:27)
[2023-05-09] MEDS ORDERED: Glucagon 1 MG/ML KIT IM PRN (08:41)
[2023-05-09] MEDS ORDERED: Dextrose 5% in Water 1,000 ML IV PRN (08:41)
[2023-05-09] MEDS ORDERED: Dextrose 50% Abboject 50 ML SYRINGE SLOW IVP PRN (08:41)
[2023-05-09] MEDS ORDERED: Morphine 2 MG/ML VIAL SLOW IVP PRN (08:57)
[2023-05-09] MEDS ORDERED: Non-Formulary Item 1 EACH (Insulin Glargine,Hum.Rec.Anlog [Lantus Solostar] 100 UNIT/ML P SQ SCH (09:00)
[2023-05-09] MEDS ORDERED: CHOLECALCIFEROL 2000 UNIT PO SCH (09:00)
[2023-05-09 09:50] VITALS: BMI 27.3
[2023-05-09] MEDS: Isosorbide Dinitrate 20 MG TAB PO SCH (10:30)
[2023-05-09] MEDS: Aspirin 81 mg Enteric Coated Tablet PO SCH (10:30)
[2023-05-09] MEDS: hydrALAZINE 10 MG TAB PO SCH (10:30)
[2023-05-09] MEDS: Enoxaparin 40 MG (0.4 mL) SYRINGE SC SCH (10:31)
[2023-05-09] MEDS: Levothyroxine Sodium 100 MCG TAB PO SCH (10:31)
[2023-05-09 12:19] LABS: Troponin I 0.036 ng/mL (< 0.028)
[2023-05-09] MEDS: NIFEdipine XL 90 MG ER.TAB PO SCH (13:30)
[2023-05-09] MEDS: niCARdipine 25 MG in Sodium Chloride 0.9% 250 ML 250 ML IVPB SCH (13:30)
[2023-05-09] MEDS: Furosemide 40 MG (4 mL) VIAL SLOW IVP SCH (14:16)
[2023-05-09] MEDS: Calcium Carbonate 600 MG + Vit D TAB PO SCH (20:37)
[2023-05-09] MEDS: Magnesium Oxide 250 MG TAB PO SCH (20:37)
[2023-05-09] MEDS: Melatonin 3 MG TAB PO SCH (20:38)
[2023-05-09] MEDS: HumaLOG 300 UNITS/3 ML VIAL SC PRN (20:38)
[2023-05-09] MEDS ORDERED: [UNRECOGNIZED DRUG - OTHER] PO SCH (21:00)
[2023-05-09] MEDS ORDERED: VITAMIN D3 PO SCH (21:00)
[2023-05-09] MEDS ORDERED: CALCIUM CARBONATE PO SCH (21:00)
[2023-05-09] MEDS ORDERED: Non-Formulary Item 1 EACH (Magnesium [Magnesium] 250 MG Tablet) PO SCH (21:00)
[2023-05-09] MEDS ORDERED: Non-Formulary Item 1 EACH (Melatonin [Melatonin] 5 MG Tablet) PO SCH (21:00)
[2023-05-09] MEDS ORDERED: Ipratropium/Albuterol 3 ML NEB NEB PRN (21:27)
[2023-05-09] MEDS: traZODone HCl 50 MG TAB PO SCH (21:38)
[2023-05-10] MEDS: Morphine 4 MG/ML VIAL SLOW IVP PRN (01:30)
[2023-05-10] MEDS: Fluticasone Propionate Nasal Spray 16 gm Bottle NASAL SCH ×2 (01:42→09:14)
[2023-05-10 05:08] LABS: #Basophils 0.05 10x3/uL (0.0-0.2); %Basophils 0.7 % (0.0-1.0); %Eosinophils 2.9 % (0.0-10.0); %Lymphocytes 23.7 % (21.0-51.0); %Monocytes 10.5 % (0.0-10.0); %Neutrophils 61.8 % (42.0-75.0); Hematocrit 25.1 % (36.0-47.0); Hemoglobin 8.1 g/dL (12.0-16.0); Mean Corpuscular HGB CONC 32.3 g/dL (32.0-36.0); Mean Corpuscular Hemoglobin 28.7 pg (27.0-31.0); Mean Platelet Volume 10.6 fL (7.4-10.4); Platelet Count 293 10x3/uL (130-400); RBC Distribution Width 15.1 % (11.5-14.5); Red Blood Cell (RBC) Count 2.82 mill/uL (4.20-5.40)
[2023-05-10 06:04] LABS: Anion Gap 12 mmol/L (10-20); BUN (Urea Nitrogen) 24 mg/dL (9.8-20.1); Calc. Creatinine Clearance 29 mL/min (70-130); Calcium 9.1 mg/dL (7.8-10.44); Carbon Dioxide 27 mmol/L (23-31); Chloride 105 mmol/L (98-107); Estimated GFR 35; Glucose 135 mg/dL (83-110); Potassium 3.5 mmol/L (3.5-5.1); Sodium 140 mmol/L (136-145)
[2023-05-10] MEDS ORDERED: Fluticasone Propionate Nasal Spray 16 gm Bottle NASAL SCH (09:00)
[2023-05-10] MEDS: Cholecalciferol 1,000 UNITS (25 MCG) TAB PO SCH (09:11)
[2023-05-10] MEDS: Enoxaparin 30 MG (0.3 mL) SYRINGE SC SCH (09:12)
[2023-05-10] MEDS: QUEtiapine 25 MG TAB PO SCH (20:37)
[2023-05-11] MEDS: Levothyroxine Sodium 100 MCG TAB PO SCH (05:32)
[2023-05-11 05:57] LABS: #Basophils 0.03 10x3/uL (0.0-0.2); %Basophils 0.5 % (0.0-1.0); %Eosinophils 4.4 % (0.0-10.0); %Monocytes 11.6 % (0.0-10.0); %Neutrophils 57.2 % (42.0-75.0); Hematocrit 23.1 % (36.0-47.0); Hemoglobin 7.3 g/dL (12.0-16.0); Mean Corpuscular HGB CONC 31.6 g/dL (32.0-36.0); Mean Corpuscular Hemoglobin 28.7 pg (27.0-31.0); Mean Corpuscular Volume 90.9 fL (78.0-98.0); Mean Platelet Volume 10.2 fL (7.4-10.4); Platelet Count 269 10x3/uL (130-400); Red Blood Cell (RBC) Count 2.54 mill/uL (4.20-5.40)
[2023-05-11 06:08] LABS: Anion Gap 9 mmol/L (10-20); BUN (Urea Nitrogen) 28 mg/dL (9.8-20.1); Calc. Creatinine Clearance 23 mL/min (70-130); Calcium 8.7 mg/dL (7.8-10.44); Carbon Dioxide 30 mmol/L (23-31); Cardiac Risk 4.8 (Less than 4.5); Chloride 104 mmol/L (98-107); Cholesterol 197 mg/dl (< 200 Desired); Estimated GFR 28; Glucose 111 mg/dL (83-110); HDL Cholesterol 41 mg/dL (>60 Neg Risk); LDL Cholesterol, Calculated 126 mg/dL; Sodium 139 mmol/L (136-145); Triglycerides 149 mg/dL (Less than 150)
[2023-05-11] MEDS: Fish Oil 1,000 MG CAP PO SCH (08:34)
[2023-05-11] MEDS: Ezetimibe 10 MG TAB PO SCH (08:35)
[2023-05-11 17:04] LABS: Free T4 (Free Thyroxine) 1.19 ng/dL (0.70-1.48)
[2023-05-11] MEDS: QUEtiapine 25 MG TAB PO SCH (23:05)
[2023-05-12] MEDS: Labetalol HCl 100 MG/20 ML VIAL SLOW IVP PRN (06:19)
[2023-05-12] MEDS: Aspirin 81 mg Enteric Coated Tablet PO SCH (09:02)
[2023-05-12 09:17] LABS: #Basophils 0.03 10x3/uL (0.0-0.2); %Basophils 0.4 % (0.0-1.0); %Eosinophils 2.5 % (0.0-10.0); %Lymphocytes 19.1 % (21.0-51.0); %Monocytes 9.1 % (0.0-10.0); %Neutrophils 68.5 % (42.0-75.0); Hematocrit 27.3 % (36.0-47.0); Hemoglobin 8.6 g/dL (12.0-16.0); Mean Corpuscular HGB CONC 31.5 g/dL (32.0-36.0); Mean Corpuscular Hemoglobin 28.4 pg (27.0-31.0); Mean Corpuscular Volume 90.1 fL (78.0-98.0); Mean Platelet Volume 10.2 fL (7.4-10.4); Platelet Count 302 10x3/uL (130-400); RBC Distribution Width 14.9 % (11.5-14.5); Red Blood Cell (RBC) Count 3.03 mill/uL (4.20-5.40)
[2023-05-12] MEDS: Acetaminophen 325 MG TAB PO PRN (09:20)
[2023-05-12 09:32] LABS: Anion Gap 13 mmol/L (10-20); BUN (Urea Nitrogen) 31 mg/dL (9.8-20.1); Calc. Creatinine Clearance 22 mL/min (70-130); Carbon Dioxide 26 mmol/L (23-31); Chloride 104 mmol/L (98-107); Estimated GFR 26; Glucose 222 mg/dL (83-110); Potassium 4.1 mmol/L (3.5-5.1); Sodium 139 mmol/L (136-145)
[2023-05-12] MEDS: hydrALAZINE 20 MG/ML VIAL SLOW IVP PRN (16:14)
[2023-05-12] MEDS: QUEtiapine 25 MG TAB PO SCH (23:43)
[2023-05-13] MEDS: DULoxetine 20 MG CAP PO SCH (08:54)
[2023-05-13] MEDS: diphenhydrAMINE 25 MG CAP PO PRN (21:32)
[2023-05-14] MEDS: QUEtiapine 25 MG TAB PO SCH (00:55)
[2023-05-14 05:02] LABS: #Basophils Less than 0.03 10x3/uL (0.0-0.2); %Basophils 0.3 % (0.0-1.0); %Eosinophils 3.3 % (0.0-10.0); %Monocytes 9.9 % (0.0-10.0); %Neutrophils 66.2 % (42.0-75.0); Hematocrit 25.2 % (36.0-47.0); Hemoglobin 7.8 g/dL (12.0-16.0); Mean Corpuscular Hemoglobin 27.8 pg (27.0-31.0); Mean Corpuscular Volume 89.7 fL (78.0-98.0); Mean Platelet Volume 10.2 fL (7.4-10.4); Platelet Count 282 10x3/uL (130-400); RBC Distribution Width 14.6 % (11.5-14.5); Red Blood Cell (RBC) Count 2.81 mill/uL (4.20-5.40)
[2023-05-14 05:07] LABS: Albumin 2.1 g/dL (3.4-4.8); Anion Gap 10 mmol/L (10-20); BUN (Urea Nitrogen) 28 mg/dL (9.8-20.1); Calc. Creatinine Clearance 29 mL/min (70-130); Calcium 8.9 mg/dL (7.8-10.44); Carbon Dioxide 26 mmol/L (23-31); Chloride 106 mmol/L (98-107); Estimated GFR 36; Glucose 121 mg/dL (83-110); Potassium 3.8 mmol/L (3.5-5.1); Sodium 138 mmol/L (136-145)
[2023-05-14 08:09] LABS: Bilirubin Negative (Negative); Blood, Urine Negative (Negative); Clarity Clear (Clear); Glucose, Urine (Dipstick) 70 mg/dL (Negative); Ketone, Urine Negative (Negative); Leukocyte 25 Leu/uL (Negative); Nitrite Negative (Negative); Protein, Urine (Dipstick) 300 mg/dL (Neg-Trace); RBC/HPF 0-3 HPF (0-3); Squamous Epithelial 0-3 HPF (0-3); Urobilinogen Normal mg/dL (Less than 2)
[2023-05-14 08:18] LABS: Bacteria/HPF 1+ HPF (None Seen)
[2023-05-14 08:39] LABS: Creatinine, Urine 35.72 mg/dL (47-110)
[2023-05-14 09:52] VITALS: TEMP 98.2
[2023-05-14 11:04] VITALS: BP 158/65
== END 2023-05-14 13:14 | disposition home or self-care (01) | DRG 291 ==
LOC: ERS 04:55 → SUATTDRO 04:55 → CCU 07:51
PROVIDERS: ADMIT Family Medicine; ATTEND Internal Medicine
PROC: 5A09357 Assistance with Respiratory Ventilation, Less than 24 Consecutive Hours, Continuous Positive Airway Pressure (ICD-10-PCS; principal; 2023-05-14)
DX: I13.0 Hypertensive heart and chronic kidney disease with heart failure and stage 1 through stage 4 chronic kidney disease, or unspecified chronic kidney disease (principal); I50.33 Acute on chronic diastolic (congestive) heart failure; J96.01 Acute respiratory failure with hypoxia; I16.1 Hypertensive emergency; N17.9 Acute kidney failure, unspecified; N18.4 Chronic kidney disease, stage 4 (severe); R79.89 Other specified abnormal findings of blood chemistry; E03.9 Hypothyroidism, unspecified; I25.10 Atherosclerotic heart disease of native coronary artery without angina pectoris; E11.40 Type 2 diabetes mellitus with diabetic neuropathy, unspecified; N18.30 Chronic kidney disease, stage 3 unspecified; D63.1 Anemia in chronic kidney disease; E11.22 Type 2 diabetes mellitus with diabetic chronic kidney disease; E78.5 Hyperlipidemia, unspecified; G47.33 Obstructive sleep apnea (adult) (pediatric); Z96.659 Presence of unspecified artificial knee joint; Z95.1 Presence of aortocoronary bypass graft; Z88.2 Allergy status to sulfonamides; Z88.8 Allergy status to other drugs, medicaments and biological substances; Z79.82 Long term (current) use of aspirin; Z79.899 Other long term (current) drug therapy; Z79.890 Hormone replacement therapy; Z90.49 Acquired absence of other specified parts of digestive tract; Z90.710 Acquired absence of both cervix and uterus; M19.90 Unspecified osteoarthritis, unspecified site; D50.9 Iron deficiency anemia, unspecified; I5A Non-ischemic myocardial injury (non-traumatic); Z96.651 Presence of right artificial knee joint; Z88.1 Allergy status to other antibiotic agents; Z88.5 Allergy status to narcotic agent; Z98.890 Other specified postprocedural states
CPT/HCPCS: 36415; 36416; 71045; 71275; 76770; 80048; 80053; 80061; 80069; 81001; 81003; 81015; 82570; 83735; 83880; 84156; 84439; 84443; 84481; 84484; 85025; 85379; 93005; 93306; 93970; 93975; 94660; 96365; 96366; 96374; 96375; J0360; J1650; J1815; J1940; J2270; J2405; J3475; J7050; Q5106; Q9967